=== PATIENT | female | born 1955 | race Caucasian/White ===

== ENCOUNTER 2019-11-09 06:30 | Day surgery (SDC) | payer MEDICARE ==
[2019-11-09] MEDS ORDERED: Buffered Lidocaine 1% SYRIN* 1 ML/SYRINGE INTRADERM ONE (06:56)
[2019-11-09] MEDS ORDERED: Lidocaine 2.5%/Prilocain 2.5%* 5 GM TUBE ONE ×2 (06:56→07:14)
[2019-11-09] MEDS ORDERED: ceFAZolin 2 GM in NS PREMIX(*) 2 GM/100 ML BAG IVPB ONE (07:02)
[2019-11-09] MEDS ORDERED: Naloxone* 0.4 MG/ML 1 ML VIAL IV PRN (07:56)
[2019-11-09] MEDS ORDERED: Ondansetron INJ* 2 MG/ML VIAL IV PRN (07:56)
[2019-11-09] MEDS ORDERED: HYDROmorphone INJ1* 1 MG/ML SYRINGE IV PRN (07:56)
[2019-11-09] MEDS ORDERED: PROCHLORPERAZINE INJ 5 MG/ML 2 ML VIAL IV PRN (07:56)
[2019-11-09] MEDS ORDERED: Lidocaine 1% INJ* 10 MG/ML 30 ML SDV ONE (09:23)
[2019-11-09] MEDS ORDERED: Bupivacaine 0.5% W/EPI SDV* 10 ML VIAL INJ ONE (09:23)
[2019-11-09] MEDS ORDERED: Bupivacaine 0.5%* 50 ML MDV VIAL ONE (09:23)
[2019-11-09] MEDS ORDERED: Propofol* 10 MG/ML 20 ML BTL ONE (09:55)
[2019-11-09] MEDS ORDERED: HYDROmorphone INJ1* 1 MG/ML SYRINGE ONE (09:55)
[2019-11-09] MEDS ORDERED: EPHEDrine (Pressors)* 50 MG/ML VIAL ONE (10:13)
[2019-11-09] MEDS ORDERED: Dexamethasone IV* 4 MG/ML 1 ML (4 MG) ONE (10:57)
[2019-11-09] MEDS ORDERED: Ondansetron INJ* 2 MG/ML VIAL ONE ×2 (10:57→11:45)
--- NOTE | 2019-11-09 11:14 | BRIEFOPN ---
Brief Operative/Procedure Note - Operation Details Pre-Op Diagnosis: left breast mammographic abnormality Post-Op Diagnosis: same Procedures: needle localization excision of left breast mammographic abnormality Surgeon(s)/Proceduralists: surgeon: Rasheed. asst: Yvette Anesthesia: general Estimated Blood Loss: 3 cc Findings: see dictation Specimen(s)/Culture(s) Description: left breast tissue Complications: none
[2019-11-09] MEDS ORDERED: PROCHLORPERAZINE INJ 5 MG/ML 2 ML VIAL ONE (12:02)
[2019-11-09 13:25] VITALS: BP 115/83
--- NOTE | 2019-11-09 23:11 | OP ---
CC: [facility]; Dr. Lion Rice * DATE OF OPERATION: 11/09/19 - SDS DATE OF : 53 SURGEON: Kavitha Iqbal MD THERAPEUTIC RIDING INSTRUCTOR: JON Crawford PRE-OP DIAGNOSIS: Left breast mammographic abnormality. POST-OP DIAGNOSIS: Left breast mammographic abnormality. OPERATIVE PROCEDURE: Needle localization and excision of left breast mammographic abnormality. INDICATIONS: This patient is a 64-year-old woman with a recent finding of mammographic abnormality that was determined and prompted the plan for surgical excision after biopsy was inconclusive. DESCRIPTION OF PROCEDURE: On the morning of surgery, she underwent needle localization without difficulty. She was then brought to the operating room, placed on the OR table in the supine position, and given general anesthesia. The left breast was prepped and draped in the usual sterile fashion, taking care not to dislodge the localizing wire. After infiltrated with local anesthetic, a curvilinear elliptical incision encompassing the wire was made. Subcutaneous tissue was then divided with electrocautery to excise the mass of tissue from around the wire. This was marked in the usual fashion and handed off as a specimen. Hemostasis was assured with electrocautery; and, when the report came back from Radiology indicating that the wire and clip were contained in the specimen, clips were placed in the cavity to bhanu its confines. Additional local was instilled and closure was accomplished. This was done with 3-0 Vicryl in the subcutaneous layer and the skin was closed with 4-0 Prolene in a subcuticular fashion. Steri-Strips and a dry sterile dressing were applied. All sponge and instrument counts were correct. The patient tolerated the procedure well and was transferred to Recovery in a stable condition. [id number]/[facility] #: [id number] [facility]
== END 2019-11-09 13:25 | disposition home or self-care (01) ==
LOC: OR 06:30
PROVIDERS: ATTEND Surgery
DX: N60.02 Solitary cyst of left breast (principal); R92.8 Other abnormal and inconclusive findings on diagnostic imaging of breast; R92.0 Mammographic microcalcification found on diagnostic imaging of breast; N60.12 Diffuse cystic mastopathy of left breast
CPT/HCPCS: 88307; A9270-GY; J0690; J0780; J1100; J1170; J2405; J2704; J3490

== ENCOUNTER 2022-02-09 06:42 | Inpatient (IN) ==
[~2022-02-09 06:42] MED LIST: Buffered Lidocaine 1% SYRIN 1 ml INTRADERM ONE; Famotidine IV 10 MG/ML 2 ml VIAL (20 mg) IV ONE; Lactated Ringers 1000 ml BAG 1,000 ML IV SCH
[2022-02-09] MEDS ORDERED: ceFAZolin 2 GM in NS PREMIX 2 GM/100 ML BAG IVPB ONE (07:02)
[2022-02-09] MEDS ORDERED: Famotidine IV 10 MG/ML 2 ml VIAL (20 mg) ONE (07:03)
[2022-02-09] MEDS ORDERED: fentaNYL 100 mcg/2 ml 50 MCG/ML VIAL ONE ×2 (07:56→08:25)
[2022-02-09] MEDS ORDERED: Midazolam 2 mg/2 ml VIAL 1 mg/ml 2 ml VIAL (2 mg) ONE (07:56)
[2022-02-09] MEDS ORDERED: Propofol 10 MG/ML 20 ML BTL ONE (07:56)
[2022-02-09] MEDS ORDERED: Dexamethasone IV 4 MG/ML VIAL 1 ml VIAL ONE (07:56)
[2022-02-09] MEDS ORDERED: Ondansetron 4 mg VIAL 2 MG/ML 2 ml VIAL ONE (07:56)
[2022-02-09] MEDS ORDERED: Phenylephrine IV 10 MG/ML 1 ml VIAL ONE (07:58)
[2022-02-09] MEDS ORDERED: Midazolam 5 mg/5 ml VIAL 1 mg/ml 5 ml VIAL (5 mg) ONE (08:25)
[2022-02-09] MEDS ORDERED: ROPIVACAINE 5 MG/ML 30 ML BTL (0.5%) ONE ×2 (08:26→08:30)
[2022-02-09] MEDS ORDERED: Enalaprilat IV 1.25 mg/ml 2 ml VIAL (2.5 MG) ONE ×2 (08:35→12:40)
[2022-02-09] MEDS ORDERED: Morphine 2 MG/ML SYRINGE IV PRN (10:46)
[2022-02-09] MEDS ORDERED: Magnesium Hydroxide LIQ 30 ML UDC PO PRN (10:46)
[2022-02-09] MEDS ORDERED: Ondansetron ODT 4 mg TAB 4 MG TAB PO PRN (10:46)
[2022-02-09] MEDS ORDERED: Lactulose 30 ml UDC PO PRN (10:46)
[2022-02-09] MEDS ORDERED: Ondansetron 4 mg VIAL 2 MG/ML 2 ml VIAL IV PRN (10:46)
[2022-02-09] MEDS ORDERED: Enalaprilat IV 1.25 mg/ml 2 ml VIAL (2.5 MG) IV ONE (12:43)
[2022-02-09] MEDS ORDERED: Enalaprilat IV 1.25 mg/ml 1 ml VIAL (1.25 MG) IV ONE (13:32)
[2022-02-09] MEDS: Lactated Ringers 1000 ml BAG 1,000 ML IV SCH (14:44)
[2022-02-09] MEDS: ceFAZolin 1 GM ADVAN 1 GM in NS 0.9% 50 ML 50 ML IVPB SCH (16:30)
[2022-02-09] MEDS: Magnesium Hydroxide LIQ 30 ML UDC PO SCH (21:22)
[2022-02-10] MEDS: Lactated Ringers 1000 ml BAG 1,000 ML IV SCH (00:02)
[2022-02-10] MEDS: ceFAZolin 1 GM ADVAN 1 GM in NS 0.9% 50 ML 50 ML IVPB SCH ×2 (01:21→08:33)
[2022-02-10 05:03] LABS: Hematocrit 26 % (35-47); Hemoglobin 8.9 g/dL (12.0-16.0); Mean Platelet Volume 7.2 fL (7.4-10.4); Platelet Count 198 10^3/uL (150-450)
[2022-02-10 05:25] LABS: Calcium 7.4 mg/dL (8.6-10.3); Potassium 3.6 mmol/L (3.5-5.0); eGFR CKD-EPI 100.4 (>60)
[2022-02-10] MEDS: Magnesium Hydroxide LIQ 30 ML UDC PO SCH (08:33)
[2022-02-10] MEDS ORDERED: Vitamin THERAPEUTIC TAB PO SCH (09:00)
[2022-02-10 11:21] VITALS: BP 116/72
== END 2022-02-10 13:15 | disposition home or self-care (01) | DRG 470 ==
LOC: AA 06:42 → SSU 14:02
PROVIDERS: ADMIT Orthopaedic Surgery Adult Reconstructive Orthopaedic Surgery; ATTEND Orthopaedic Surgery Adult Reconstructive Orthopaedic Surgery